=== PATIENT | female | born 1960 | race Caucasian/White ===

== ENCOUNTER 2017-01-19 16:32 | Inpatient (IN) | payer OTHER ==
--- NOTE | ~2017-01-19 | CR72 ---
[facility] A Service of [facility] & [facility] RADIOLOGY TEXT RESULTS PATIENT: JOHNATHAN MARTE LOCATION: [facility] 226-01 : 58 UNIT #: [id number] AGE: [address]: Yesy Blackwell MD SEX: F ORDER DR: [id number] [facility] [address]. [place], [place] [address] [id number] MR#: [id number] Acc #: [id number] NAME: JOHNATHAN MARTE : 1960 SEX: F STUDY DATE/TIME: 01/19/2017 19:17 UNIT: JADEN ROOM: STUDY DESCRIPTION: CR Chest Single View Portable Attending Physician: Dunia Driver M.D. Ordering Physician: Dunia Driver M.D. Primary Care Physician: No Primary Care Physician MEDICAL IMAGING REPORT This report is preliminary unless electronic signature is present EXAM Portable chest. HISTORY Mold exposure, chest pain, shortness of air x1 week. FINDINGS Portable view of the chest demonstrates mild pulmonary hyperinflation may reflect underlying emphysema. No acute airspace disease or consolidation. No effusions. Heart, mediastinum, great vessels and bony thorax unremarkable. No pneumothorax. Dictated by... Jessie Lewis M.D. THIS IS AN ELECTRONICALLY VERIFIED REPORT Jessie Lewis M.D. at 01/22/2017 6:07 AM Veronique TD: 01/19/2017 23:47 JOB #: [id number] MEDICAL IMAGING REPORT Page 1 of 1 COPY
--- NOTE | ~2017-01-19 | CT16 ---
[facility] A Service of [facility] RADIOLOGY TEXT RESULTS PATIENT: JOHNATHAN MARTE LOCATION: C2A : 58 UNIT #: [id number] AGE: [address]: Yesy Blackwell MD SEX: F ORDER DR: [id number] [facility]. [place], [place] [address] [id number] I MR#: [id number] Acc #: [id number] NAME: JOHNATHAN MARTE : 1960 SEX: F STUDY DATE/TIME: 01/19/2017 23:03 UNIT: C5B ROOM: 562 STUDY DESCRIPTION: CT Angio Chest for PE Attending Physician: Yesy Blackwell M.D. Ordering Physician: Dunia Driver M.D. Primary Care Physician: Primary Care Physician No MEDICAL IMAGING REPORT This report is preliminary unless electronic signature is present EXAM CTA chest INDICATIONS Shortness of air. Mold exposure for [address] angiography of the chest utilizing 80 mL Isovue-370 IV contrast. Coronal 3-D MIP reconstructions and standard sagittal MPRs were obtained. This CT exam was performed with one or more of the following radiation dose reduction techniques: automatic control, adjustment of mA and/or kV according to patient size, and iterative reconstruction. COMPARISON Chest radiograph dated 01/19/2017. FINDINGS No central pulmonary embolus. Respiratory motion artifact limits evaluation of the peripheral pulmonary arteries. No thoracic aortic aneurysm or dissection. No pericardial or pleural effusion. There is minimal linear airspace opacity in the right middle lobe. This is most consistent with atelectasis or scarring. IMPRESSION 1. Negative for pulmonary embolus. 2. No acute findings in the chest. 3. Linear airspace opacity in the right middle lobe probably represents either atelectasis or scarring. Dictated by... [facility] A Service [facility] RADIOLOGY TEXT RESULTS PATIENT: JOHNATHAN MARTE LOCATION: C2A : 58 UNIT #: [id number] AGE: [address]: Yesy Blackwell MD SEX: F ORDER DR: Percy Ordaz M.D. THIS IS AN ELECTRONICALLY VERIFIED REPORT Percy Ordaz M.D. at 01/22/2017 10:30 PM RPC/rnr TD: 01/20/2017 03:58 JOB #: [id number] MEDICAL IMAGING REPORT Page 1 of 1 COPY
--- NOTE | ~2017-01-19 | EKG ---
PATIENT: JOHNATHAN MARTE UNIT #: [id number] Ventricular Rate: 111 BPM Atrial Rate: 111 BPM P-R Interval: 148 ms QRS Duration: 72 ms Q-T Interval: 314 ms QTC Calculation(Bezet): 427 ms P Whiting: 68 degrees Calculated R Whiting: -20 degrees Calculated T Whiting: 36 degrees Diagnosis Line: Sinus tachycardia Diagnosis Line: Otherwise normal ECG Diagnosis Line: No previous ECGs available Diagnosis Line: Confirmed by SAULO MADISON MD ([id number]) on Diagnosis Line: 01/20/2017 4:28:48 PM INTERPRETING MD: LOS ANDRES
--- NOTE | ~2017-01-19 | CR195 ---
[facility] A Service of [facility] & [facility] RADIOLOGY TEXT RESULTS PATIENT: JOHNATHAN MARTE LOCATION: A 226-01 : 58 UNIT #: [id number] AGE: [address]: Yesy Blackwell MD SEX: F ORDER DR: [id number] [facility] [address] [facility]. [place], [place] [address] [id number] I MR#: [id number] Acc #: [id number] NAME: JOHNATHAN MARTE : 1960 SEX: F STUDY DATE/TIME: 01/20/2017 17:17 UNIT: [facility] ROOM: [facility] STUDY DESCRIPTION: CR Neck Soft Tissue Attending Physician: Yesy Blackwell M.D. Ordering Physician: Yesy Blackwell M.D. Primary Care Physician: No Primary Care Physician MEDICAL IMAGING REPORT This report is preliminary unless electronic signature is present Soft tissue neck, AP and lateral. HISTORY Difficulty breathing for 1 week. Reactive airway disease. Shortness of air. FINDINGS AP and lateral soft tissue views of the neck demonstrate no precervical soft tissue swelling. No airway narrowing or displacement. No precervical soft tissue swelling. No epiglottic enlargement. IMPRESSION Negative examination. No oropharyngeal airway narrowing or displacement. Dictated by... Dyllan Mcgovern M.D. THIS IS AN ELECTRONICALLY VERIFIED REPORT Dyllan Mcgovern M.D. at 01/20/2017 10:50 PM JENNIFER/denzel TD: 01/20/2017 20:03 JOB #: [id number] MEDICAL IMAGING REPORT Page 1 of 1 COPY
--- NOTE | ~2017-01-19 | DS ---
Unit #: [id number] #: [id number] Patient: JOHNATHAN ALVARES [id number] [address] [address] [id number] Ginger MR#: [id number] NAME: JOHNATHAN ALVARES ROOM: 226 Age: 56 Sex: F Admission Date: 01/20/2017 : 1960 Discharge Date: 01/21/2017 Attending Physician: Yesy Blackwell M.D. Primary Care Physician: No Primary Care Physician DISCHARGE SUMMARY PRIMARY CARE PROVIDER None. PRINCIPAL DIAGNOSES 1. Acute reactive airway disease exacerbation. I suspect underlying chronic obstructive pulmonary disease. 2. Tachycardia, likely secondary to #1. 3. Hyperglycemia. 4. Tobaccoism. 5. Obesity. 6. Chronic back pain. SENIOR INSTRUCTIONAL DESIGNER None. PROCEDURES 1. X-ray of the chest on January 19, 2017 with pulmonary hyperinflation consistent with underlying emphysema, no acute infiltrate. 2. X-ray of the neck on January 20, 2017, which was negative. CLINICAL HISTORY AND HOSPITAL COURSE Ms. Alvares is a 56-year-old female, who presents to the emergency department with shortness of breath. has been hospitalized with pneumonia. Please refer to H and P for further details. The patient was not hypoxic but was found to have significant wheezing on examination and subsequently was admitted. Patient was placed on IV steroids in addition to nebulizer treatments. Unfortunately, she continued to have significant amounts of wheezing. However, with a small boost in steroids, her wheezing has resolved. She did have associated stridor but honestly this appeared to be rather forced upon examination. X-ray of the soft tissues of the neck did not reveal any epiglottitis. I did also placed her on PPI therapy despite the fact she does not complain of any reflux, perhaps she has underlying vocal cord dysfunction. Either way, her symptoms today are improved. She is not hypoxic. She is not having any dyspnea upon exertion and she will be discharged home. DISCHARGE CONDITION Stable. DISCHARGE STATUS Discharge to home. Unit #: [id number] #: [id number] Patient: JOHNATHAN ALVARES DISCHARGE MEDICATIONS 1. Prednisone 10 mg tablets four tablets daily for three days, then three tablets for three days, then two tablets for three days, then one tablet for three days, then discontinue. 2. Albuterol inhaler one to two puffs every four hours p.r.n. for shortness of breath. 3. Azithromycin 250 mg p.o. daily for another four days. 4. Neurontin 600 mg daily. 5. Zocor 5 mg at bedtime. 6. Pepcid 20 mg b.i.d. 7. Flexeril 5 mg p.o. t.i.d. DISCHARGE INSTRUCTIONS 1. The patient was instructed to follow a heart healthy diet. 2. She can increase her activity as tolerated. She states she is now done with her E-cigarette. FOLLOWUP The patient will follow up with her primary care provider in two weeks. Dictated by... Yesy Blackwell M.D. TINY/cely TD: 01/22/2017 09:11 JOB #: [id number] DISCHARGE SUMMARY Page 1 of 1 X Yesy Blackwell MD X DISCHARGE SUMMARY
--- NOTE | ~2017-01-19 | HP ---
Unit #: [id number] #: [id number] Patient: JOHNATHAN MARTE [id number] [address] [place], [place] [address] [id number] I MR#: [id number] NAME: JOHNATHAN MARTE ROOM: 562 Age: 56 Sex: F Admission Date: 01/20/2017 : 1960 Attending Physician: Yesy Blackwell M.D. Primary Care Physician: Primary Care Physician No HISTORY AND PHYSICAL CHIEF COMPLAINT Shortness of breath, wheezing, right-side lung pain. HISTORY OF PRESENT ILLNESS This is a 56-year-old female, with a past medical history of dyslipidemia, chronic left wrist pain. She lives at home with her . She says she has been exposed to mold in the house. She has been having cough for a couple of days with shortness of breath which got progressively worse, and wheezing. She came to the ER. Her also came to the hospital. He was found to have, also, severe symptoms of pneumonia and admitted in the hospital here. She was given nebulizer and also Solu-Medrol in the ER. She had extensive workup including CT scan with PE protocol which was negative, but eventually she was admitted for reactive airway disease, with wheezing and stridor. She has some right-side lung pain with deep breath but she denies chest pain, denies nausea, vomiting, fever, abdominal pain, or other complaint. PAST MEDICAL HISTORY 1. History of dyslipidemia. 2. Chronic left wrist pain. PAST SURGICAL HISTORY History of left wrist surgery. SOCIAL HISTORY She smoked five cigarettes daily, now she is using electronic cigarette. She denies illicit drug use. ALLERGIES She is allergic to novocaine. HOME MEDICATIONS Is the followin. Flexeril 5 mg three times daily 2. Neurontin 600 mg daily 3. Zocor 5 mg daily REVIEW OF SYSTEMS All review of systems negative except for history of present illness. PHYSICAL EXAMINATION GENERAL: Middle-aged female lying in the bed comfortably, currently not in any distress. She is alert, awake, and oriented x3, comfortable, not Unit #: [id number] #: [id number] Patient: JOHNATHAN MARTE in any distress. VITAL SIGNS: Current vitals are the following, blood pressure 146/105, heart rate 112, respiratory rate 16, and temperature 98.5. HEENT EXAMINATION: Pupils equal reactive to light and accommodation. Head: Normocephalic and atraumatic. NECK: Supple. No jugular venous distention. HEART: S1 and S2, regular rate and rhythm. LUNGS: She has wheezing positive, and positive stridor. ABDOMEN: Soft, nontender, and nondistended. Bowel sounds are positive. EXTREMITIES: Inspection normal. No cyanosis, no clubbing, and no edema. NEUROLOGIC: No focal neurologic deficit. DIAGNOSTIC STUDIES LABORATORY: Laboratory workup is the following, she has a CBC, white count 10, hemoglobin 14, hematocrit 42, platelets 325. Chemistries, sodium 136, potassium 3.4, chloride 102, glucose 99, BUN 12, creatinine 1.1, alkaline phosphatase 130, BNP is 8, troponin less than 0.05. Lactic acid level is 2.5. IMAGING: Chest x-ray negative. CT scan with PE protocol negative. ASSESSMENT/PLAN 1. Reactive airway disease secondary to exposure to mold and stridor, will place the patient on nebulizer, IV steroids. 2. Bronchitis with cough, start the patient on Rocephin, Zithromax. 3. History of dyslipidemia. 4. Chronic left wrist pain. 5. DVT prophylaxis. Will place the patient on SCDs. Dictated by Tory Ross TD: 01/20/2017 09:54 JOB #: [id number] HISTORY AND PHYSICAL Page 1 of 1 X X HISTORY AND PHYSICAL
[2017-01-19 19:24] LABS: BASOPHIL# 0.1 X10e3 (0-0.3); BASOPHIL% 1.2 % (0-2.5); EOSINOPHIL# 0.1 X10e3 (0-0.7); EOSINOPHIL% 1.3 % (0.0-7.0); HEMATOCRIT 42.5 % (35.0-45.0); LYMPHOCYTE# 2.3 X10e3 (1.0-3.5); LYMPHOCYTE% 23.1 % (17.0-45.0); MEAN CELL VOLUME 90.9 FL (83-96); MEAN CORPUSCULAR HEMOGLOBIN 29.9 PG (28-34); MEAN CORPUSCULAR HGB CONC 32.9 g/dL (30-36); MEAN PLATELET VOLUME 8.5 FL (6.5-11.5); MONOCYTE# 0.9 X10e3 (0-1.0); MONOCYTE% 8.5 % (3.0-12.0); NEUTROPHIL# 6.7 X10e3 (1.5-7.1); NEUTROPHIL% 65.9 % (40-75); PLATELET COUNT 325 X10e3 (140-420); RED BLOOD COUNT 4.67 X10e (3.90-5.30); RED CELL DISTRIBUTION WIDTH 13.4 % (11.0-15.5); WHITE BLOOD COUNT 10.1 X10e3 (4.0-10.5)
[2017-01-19 19:25] LABS: DIFF IND NO
[2017-01-19 19:45] LABS: ALBUMIN SERUM 4.7 g/dL (3.5-5.0); BILIRUBIN, DIRECT 0.1 mg/dL (0.0-0.2); BILIRUBIN,INDIRECT 0.7 mg/dL (0.0-0.9); BILIRUBIN,TOTAL 0.8 mg/dL (0.2-2.0); BUN/CREATININE RATIO 10.9; CALCIUM SERUM 9.4 mg/dL (8.4-10.2); CREATININE SERUM 1.1 mg/dL (0.6-1.4); GLOM FILT RATE Estimated 55.7 mL/min (>60); POTASSIUM 3.4 mmol/L (3.5-5.1); PROTEIN TOTAL SERUM 7.6 g/dL (6.0-8.3)
[2017-01-19 21:34] LABS: POC - CKMB <1.0 ng/mL (0.0-7.9); POC - TROPONIN <0.05 ng/mL (<=0.05)
[2017-01-19 23:36] LABS: POC - CKMB <1.0 ng/mL (0.0-7.9); POC - TROPONIN <0.05 ng/mL (<=0.05)
[2017-01-20] MEDS ORDERED: FLEXERIL PO (00:02)
[2017-01-20] MEDS ORDERED: NEURONTIN600 MG PO (00:02)
[2017-01-20] MEDS ORDERED: ZOCOR5 MG PO (00:03)
[2017-01-20 10:45] LABS: BUN/CREATININE RATIO 11.11; CALCIUM SERUM 9.1 mg/dL (8.4-10.2); CREATININE SERUM 0.9 mg/dL (0.6-1.4); POTASSIUM 4.2 mmol/L (3.5-5.1)
[2017-01-21] MEDS ORDERED: AZITHROMYCIN250 MG PO (15:25)
[2017-01-21] MEDS ORDERED: PREDNISONE PO (15:26)
[2017-01-21] MEDS ORDERED: PEPCID PO (15:27)
[2017-01-21] MEDS ORDERED: ALBUTEROL17 GM INH (15:27)
== END 2017-01-21 15:57 | disposition home or self-care (01) | DRG 191 ==
LOC: CED 16:32 → CEDOF 01-20 01:03 → C2A 01-20 01:03 → C5B 01-20 02:58 → C2A 01-20 18:18
PROVIDERS: Emergency Medicine; Internal Medicine
DX: J44.1 Chronic obstructive pulmonary disease with (acute) exacerbation (principal); J45.901 Unspecified asthma with (acute) exacerbation; F17.210 Nicotine dependence, cigarettes, uncomplicated; R00.0 Tachycardia, unspecified; R73.9 Hyperglycemia, unspecified; E78.5 Hyperlipidemia, unspecified; R06.1 Stridor; G89.29 Other chronic pain; M25.532 Pain in left wrist; Z77.120 Contact with and (suspected) exposure to mold (toxic); Z88.4 Allergy status to anesthetic agent; E66.9 Obesity, unspecified; Z68.22 Body mass index [BMI] 22.0-22.9, adult
CPT/HCPCS: 70360; 71010; 71275; 80048; 80076; 82553; 83605; 83880; 84484; 85025; 87040; 93005; 94640; 96365; 96366; 96375; 99285; J0456; J0696; J2270; J2405; J2920; J2930; J3475; Q9967